=== PATIENT | male | born 1970 | race Caucasian/White ===

== ENCOUNTER 2017-06-04 03:53 | Inpatient (IN) | payer OTHER ==
[~2017-06-04] VITALS: Ht 172.7 cm; Wt 78.4 kg
[2017-06-04 04:14] LABS: ADD MIUA? YES; BILIRUBIN NEGATIVE; BLOOD NEGATIVE; COLOR YELLOW ((YELLOW)); GLUCOSE (STRIP) NEGATIVE; KETONES 20; LEUKOCYTES NEGATIVE; NITRITE NEGATIVE; PROTEIN (STRIP) 30; SPECIFIC GRAVITY 1.026 (1.000-1.030)
[2017-06-04 04:16] LABS: HEMATOCRIT 41.2 % (38.0-50.0); MCH 28.6 PG (29.0-34.0); MCV 86.6 FL (86-99); MEAN PLAT.VOLUME 9.5 uM^3 (9.0-12.4); PLATELET COUNT 359 K/uL (156-360); RBC DIS.WIDTH-CV 13.9 % (11.8-14.6); RBC DIS.WIDTH-SD 44.2 % (39-53); RED BLOOD COUNT 4.76 M/uL (4.00-5.50); WHITE BLOOD COUNT 19.6 K/uL (4.1-10.2)
[2017-06-04 04:20] LABS: BACTERIA RARE /HPF; EPITHELIAL CELLS RARE /HPF; MUCUS 1+ /LPF; UCUL ADDED? NO; WHITE BLOOD CELLS 0-5 /HPF (0-5)
[2017-06-04 04:27] LABS: CHLORIDE 102 mEq/L (99-109); POTASSIUM 3.6 mEq/L (3.7-5.4); SODIUM 137 mEq/L (136-147)
[2017-06-04 04:29] LABS: GLUCOSE 119 mg/dL (70-99)
[2017-06-04 04:31] LABS: ANION GAP 12 MEQ/L (2-14); TOTAL BILIRUBIN 0.5 mg/dL (0.0-1.0)
[2017-06-04 04:33] LABS: ALKALINE PHOSPHATASE 107 IU/L (3-129); GFR ESTIMATE (CALCULATED) > 59 mL/min/
[2017-06-04 04:34] LABS: UREA NITROGEN (BUN) 13 mg/dL (9-23)
[2017-06-04 05:12] LABS: LIPASE 11 U/L (1.0-51.0)
[2017-06-04] MEDS ORDERED: TYLENOL EXTRA500 MG PO (07:24)
[2017-06-04 07:39] VITALS: BP 139/80
[2017-06-04 10:26] LABS: INTER. NORMALIZED RATIO 1.2; PROTHROMBIN TIME 14.2 SEC (10.2-12.9)
[2017-06-04 10:29] LABS: PTT 32.7 SEC (25-37)
[2017-06-04 11:00] VITALS: BP 127/74
[2017-06-04 13:34] VITALS: BP 133/78
[2017-06-04 17:04] VITALS: BP 130/76
[2017-06-04 19:00] VITALS: BP 125/79
[2017-06-05 03:47] VITALS: BP 122/73
[2017-06-05 07:34] VITALS: BP 115/75
[2017-06-05 09:22] LABS: HEMATOCRIT 39.1 % (38.0-50.0); MCH 27.8 PG (29.0-34.0); MCV 87.1 FL (86-99); MEAN PLAT.VOLUME 9.2 uM^3 (9.0-12.4); PLATELET COUNT 335 K/uL (156-360); RBC DIS.WIDTH-SD 45.2 % (39-53); RED BLOOD COUNT 4.49 M/uL (4.00-5.50); WHITE BLOOD COUNT 13.3 K/uL (4.1-10.2)
[2017-06-05 09:49] LABS: ANION GAP 9 MEQ/L (2-14); CHLORIDE 104 MEQ/L (99-109); GFR ESTIMATE (CALCULATED) > 59 mL/min/; GLUCOSE 103 mg/dL (70-99); POTASSIUM 4.3 MEQ/L (3.7-5.4); SAMPLE HEMOLYSIS CHECK 0; SAMPLE ICTERIC CHECK 0; SAMPLE LIPEMIA CHECK 0; SODIUM 141 MEQ/L (136-147); UREA NITROGEN (BUN) 8 mg/dL (9-23)
[2017-06-05 10:53] VITALS: BP 131/83
[2017-06-05 16:45] VITALS: BP 130/80
[2017-06-05 20:30] VITALS: BP 120/70
[2017-06-06 02:38] VITALS: BP 128/74
[2017-06-06 05:45] VITALS: BP 120/68
[2017-06-06 06:40] LABS: MCH 28.1 PG (29.0-34.0); MCHC 32.4 G/DL (30.0-36.0); MEAN PLAT.VOLUME 9.4 uM^3 (9.0-12.4); PLATELET COUNT 315 K/uL (156-360); RBC DIS.WIDTH-CV 13.9 % (11.8-14.6); RBC DIS.WIDTH-SD 44.7 % (39-53); RED BLOOD COUNT 4.37 M/uL (4.00-5.50); WHITE BLOOD COUNT 11.3 K/uL (4.1-10.2)
[2017-06-06 07:03] LABS: ANION GAP 8 MEQ/L (2-14); CHLORIDE 106 MEQ/L (99-109); GFR ESTIMATE (CALCULATED) > 59 mL/min/; GLUCOSE 97 mg/dL (70-99); POTASSIUM 4.6 MEQ/L (3.7-5.4); SAMPLE HEMOLYSIS CHECK 0; SAMPLE ICTERIC CHECK 0; SAMPLE LIPEMIA CHECK 0; SODIUM 141 MEQ/L (136-147); UREA NITROGEN (BUN) 7 mg/dL (9-23)
[2017-06-06 08:30] VITALS: BP 133/75
[2017-06-06 12:15] VITALS: BP 130/75
[2017-06-06 16:30] VITALS: BP 134/81
[2017-06-06 21:00] VITALS: BP 118/72
[2017-06-07] VITALS (7 sets, daily range): BP systolic 117–139; BP diastolic 66–89
[2017-06-07 05:46] LABS: MCH 27.8 PG (29.0-34.0); MCV 86.8 FL (86-99); MEAN PLAT.VOLUME 9.4 uM^3 (9.0-12.4); PLATELET COUNT 350 K/uL (156-360); RBC DIS.WIDTH-CV 13.6 % (11.8-14.6); RBC DIS.WIDTH-SD 43.3 % (39-53); RED BLOOD COUNT 4.61 M/uL (4.00-5.50); WHITE BLOOD COUNT 11.9 K/uL (4.1-10.2)
[2017-06-07 06:04] LABS: ANION GAP 9 MEQ/L (2-14); CHLORIDE 104 MEQ/L (99-109); GFR ESTIMATE (CALCULATED) > 59 mL/min/; GLUCOSE 91 mg/dL (70-99); POTASSIUM 4.3 MEQ/L (3.7-5.4); SAMPLE HEMOLYSIS CHECK 0; SAMPLE ICTERIC CHECK 0; SAMPLE LIPEMIA CHECK 0; SODIUM 140 MEQ/L (136-147); UREA NITROGEN (BUN) 9 mg/dL (9-23)
[2017-06-08 03:46] VITALS: BP 111/73
[2017-06-08 06:42] LABS: HEMATOCRIT 41.4 % (38.0-50.0); MCH 27.7 PG (29.0-34.0); MCHC 31.9 G/DL (30.0-36.0); MCV 86.8 FL (86-99); MEAN PLAT.VOLUME 9.5 uM^3 (9.0-12.4); PLATELET COUNT 384 K/uL (156-360); RBC DIS.WIDTH-CV 13.5 % (11.8-14.6); RBC DIS.WIDTH-SD 43.3 % (39-53); RED BLOOD COUNT 4.77 M/uL (4.00-5.50); WHITE BLOOD COUNT 11.1 K/uL (4.1-10.2)
[2017-06-08 09:33] VITALS: BP 148/79
[2017-06-08 14:25] VITALS: BP 150/90; BP 169/78
[2017-06-08 17:27] VITALS: BP 130/90
[2017-06-08 19:22] VITALS: BP 129/88
[2017-06-08 23:33] VITALS: BP 116/72
[2017-06-09 04:02] VITALS: BP 119/80
[2017-06-09 07:20] VITALS: BP 124/76
[2017-06-09 11:26] VITALS: BP 138/77
[2017-06-09 16:59] VITALS: BP 125/81
[2017-06-09] MEDS ORDERED: NICOTINE PATCH1 EAC2 TD (18:44)
[2017-06-09] MEDS ORDERED: CIPRO500 MG PO (18:47)
[2017-06-09] MEDS ORDERED: FLAGYL250 MG PO (18:47)
[2017-06-09 19:15] VITALS: BP 153/84
== END 2017-06-09 19:30 | disposition home or self-care (01) | DRG 392 ==
LOC: EME 03:53 → EDOF 06:00 → 4EAST 06:00 → ENRESERV 06:04 → 4EAST 07:32 → ENRESERV 07:39 → CANRESERV 07:39 → 4EAST 07:47 → ENRESERV 06-07 15:52 → 4EAST 06-07 16:44 → ENRESERV 06-07 16:57 → 2EAST 06-07 19:57
PROVIDERS: Radiology Diagnostic Radiology; Thoracic Surgery (Cardiothoracic Vascular Surgery)
PROC: 0W9G30Z Drainage of Peritoneal Cavity with Drainage Device, Percutaneous Approach (ICD-10-PCS; principal; 2017-06-04)
DX: K57.20 Diverticulitis of large intestine with perforation and abscess without bleeding (principal); E87.6 Hypokalemia; F17.210 Nicotine dependence, cigarettes, uncomplicated; Z23 Encounter for immunization
CPT/HCPCS: 74177; 75989; 80048; 80053; 81003; 83605; 83690; 85027; 85610; 85730; 87040; 87070; 87075; 87076; 87185; 87205; 90686; 99281; 99285; J1170; J2270; J2405; J2543; J3010; J7030; J7050; J7120; S0030